=== PATIENT | male | born 1990 | race Caucasian/White ===

== ENCOUNTER 2017-08-20 16:09 | Emergency (ER) | payer SELFPAY ==
[~2017-08-20] VITALS: Ht 188 cm; Wt 73.0 kg
[2017-08-20 16:19] VITALS: BP 156/88
[2017-08-20] MEDS ORDERED: LIDOCAINE 1% HCL (LOCAL ANESTH.) INJ 20ML MDV IN ONE (17:00)
== END 2017-08-20 17:30 | disposition home or self-care (01) ==
LOC: ER 16:13
DX: L02.11 Cutaneous abscess of neck (principal); F17.210 Nicotine dependence, cigarettes, uncomplicated
CPT/HCPCS: 10060; 87077; 87186; 87205

== ENCOUNTER 2017-08-22 09:53 | Emergency (ER) | payer MEDICAID ==
[~2017-08-22] VITALS: Ht 188 cm; Wt 70.3 kg
[2017-08-22 11:39] VITALS: BP 157/79
== END 2017-08-22 12:01 | disposition home or self-care (01) ==
LOC: ER 09:53
DX: L02.11 Cutaneous abscess of neck (principal); F17.210 Nicotine dependence, cigarettes, uncomplicated; Z48.01 Encounter for change or removal of surgical wound dressing

== ENCOUNTER 2017-10-19 19:37 | Inpatient (IN) | payer SELFPAY ==
[~2017-10-19] VITALS: Ht 188 cm; Wt 69.0 kg
[2017-10-19] MEDS ORDERED: cefTRIAXone 1GM/10ml IVPUSH 10 ML IV ONE (21:30)
[2017-10-19] MEDS ORDERED: VANCOMYCIN 1GM/250ML 250 ML IV ONE (21:30)
[2017-10-19] MEDS ORDERED: HYDROcodone-ACET 10/325MG TAB PO ONE (21:30)
[2017-10-19 23:39] LABS: Basophils # (auto) 0.1 uL; Basophils % (auto) 0.9 % (0.0-2.0); Eosinophils # (auto) 0.4 uL; Eosinophils % (auto) 2.8 % (0.0-7.0); Hematocrit 44.4 % (41.0-53.0); Hemoglobin 14.3 g/dL (13.5-17.5); Lymphocytes # (auto) 2.4 uL; Lymphocytes % (auto) 16.9 % (10.0-50.0); Mean Corpuscular Hemoglobin 27.2 pg (28.0-32.0); Mean Corpuscular Hgb Conc. 32.3 g/dL (32.0-36.0); Mean Corpuscular Volume 84.3 fL (80.0-100.0); Monocytes # (auto) 1.3 uL; Monocytes % (auto) 8.8 % (0.0-12.0); Neutrophils # (auto) 10.2 uL; Neutrophils % (auto) 70.6 % (37.0-80.0); Platelet Count (auto) 181 10^3/uL (140-450); Red Blood Cells 5.27 10^6/uL (4.5-5.90); Red Cell Distribution Width 14.4 % (11.8-14.3); White Blood Cell 14.5 10^3/uL (4.4-10.8)
[2017-10-19 23:54] LABS: Albumin 3.6 g/dL (3.4-5.0); BUN/Creatinine Ratio 15.7; Calcium 8.6 mg/dL (8.5-10.1); Potassium 3.7 mmol/L (3.5-5.1)
[2017-10-19 23:57] LABS: Bilirubin, Total 0.6 mg/dL (0.2-1.0); Total Protein 7.2 g/dL (6.4-8.2)
[2017-10-20] MEDS ORDERED: ONDANSETRON HCL 4 MG/2 ML VIAL ONE (00:11)
[2017-10-20] MEDS ORDERED: ONDANSETRON HCL 4 MG/2 ML VIAL IV ONE (00:15)
[2017-10-20] MEDS ORDERED: HYDROcodone-ACET 5/325MG TAB PO PRN (01:45)
[2017-10-20] MEDS ORDERED: MORPHINE SULFATE 4 MG/ML SYR/VIAL IV PRN (01:45)
[2017-10-20] MEDS ORDERED: ACETAMINOPHEN 500 MG TAB PO PRN (01:45)
[2017-10-20] MEDS ORDERED: ONDANSETRON HCL 4 MG/2 ML VIAL IV PRN (01:45)
[2017-10-20 03:24] VITALS: BP 147/83
[2017-10-20 05:00] VITALS: BP 139/71
[2017-10-20] MEDS: CLINDAMYCIN 600MG IV 50 ML IV SCH ×3 (05:34→21:30)
[2017-10-20 07:41] LABS: Basophils # (auto) 0.1 uL; Basophils % (auto) 0.5 % (0.0-2.0); Eosinophils # (auto) 0.3 uL; Eosinophils % (auto) 2.2 % (0.0-7.0); Hematocrit 45.7 % (41.0-53.0); Hemoglobin 14.8 g/dL (13.5-17.5); Lymphocytes # (auto) 1.2 uL; Lymphocytes % (auto) 8.8 % (10.0-50.0); Mean Corpuscular Hemoglobin 27.4 pg (28.0-32.0); Mean Corpuscular Hgb Conc. 32.4 g/dL (32.0-36.0); Mean Corpuscular Volume 84.4 fL (80.0-100.0); Monocytes # (auto) 1.1 uL; Monocytes % (auto) 8.2 % (0.0-12.0); Neutrophils # (auto) 10.7 uL; Neutrophils % (auto) 80.3 % (37.0-80.0); Nucleated Red Blood Cells % 0.1 %; Platelet Count (auto) 170 10^3/uL (140-450); Red Blood Cells 5.41 10^6/uL (4.5-5.90); Red Cell Distribution Width 14.3 % (11.8-14.3); White Blood Cell 13.3 10^3/uL (4.4-10.8)
[2017-10-20 07:57] LABS: BUN/Creatinine Ratio 12.2; Calcium 8.1 mg/dL (8.5-10.1); Potassium 3.4 mmol/L (3.5-5.1)
[2017-10-20 08:20] VITALS: BP 150/89
[2017-10-20] MEDS ORDERED: methylPREDNISolone SOD SUCC 125 MG/2 ML VL IV ONE (08:30)
[2017-10-20] MEDS ORDERED: diphenhdrAMINE HCL 50 MG/1 ML VL IV PRN (08:30)
[2017-10-20] MEDS ORDERED: diphenhdrAMINE HCL 50 MG/1 ML VL IM ONE (08:30)
[2017-10-20] MEDS ORDERED: cefTRIAXone 1GM/10ml IVPUSH 10 ML IV SCH (09:00)
[2017-10-20] MEDS ORDERED: diphenhdrAMINE HCL 50 MG/1 ML VL IV ONE (09:00)
[2017-10-20] MEDS ORDERED: POTASSIUM CHL 20 Meq TABLET PO ONE (09:45)
[2017-10-20] MEDS ORDERED: CHLORHEXIDINE 4% TOPICAL soln 473ML TOP SCH (10:00)
[2017-10-20] MEDS: CHLORHEXIDINE 4% TOPICAL soln 118ML TOP SCH (10:33)
[2017-10-20] MEDS: MUPIROCIN 2% OINT 22GM EACHNOSTRI SCH ×2 (10:33→21:30)
[2017-10-20 12:10] VITALS: BP 133/96
[2017-10-20 17:12] VITALS: BP 140/85
[2017-10-20 22:26] VITALS: BP 128/60
[2017-10-21 05:09] VITALS: BP 121/73
[2017-10-21] MEDS: CLINDAMYCIN 600MG IV 50 ML IV SCH ×3 (05:30→22:26)
[2017-10-21 06:05] LABS: Basophils # (auto) 0.1 uL; Basophils % (auto) 0.4 % (0.0-2.0); Eosinophils # (auto) 0 uL; Hematocrit 46.1 % (41.0-53.0); Hemoglobin 14.9 g/dL (13.5-17.5); Lymphocytes # (auto) 1.1 uL; Lymphocytes % (auto) 4.6 % (10.0-50.0); Mean Corpuscular Hgb Conc. 32.3 g/dL (32.0-36.0); Mean Corpuscular Volume 83.6 fL (80.0-100.0); Monocytes % (auto) 4.3 % (0.0-12.0); Neutrophils # (auto) 22.1 uL; Neutrophils % (auto) 90.7 % (37.0-80.0); Platelet Count (auto) 207 10^3/uL (140-450); Red Blood Cells 5.51 10^6/uL (4.5-5.90); White Blood Cell 24.4 10^3/uL (4.4-10.8)
[2017-10-21 06:15] LABS: BUN/Creatinine Ratio 23.1; Calcium 8.5 mg/dL (8.5-10.1)
[2017-10-21 08:00] VITALS: BP 113/59
[2017-10-21 08:36] VITALS: BP 121/72
[2017-10-21 09:15] LABS: Urine Bacteria FEW /hpf (None Seen); Urine Blood Negative /uL (Negative); Urine Specific Gravity 1.015 (1.001-1.035); Urine WBC 48 /hpf (0 - 3)
[2017-10-21 09:17] LABS: Alcohol, Urine < 3.0 mg/dL (0-5); Amphetamine Screen, Urine NEGATIVE (NEGATIVE); Barbiturate Scree,Urine NEGATIVE (NEGATIVE); Benzodiazephine Screen, Urine NEGATIVE (NEGATIVE); Cannabinoid Screen, Urine NEGATIVE (NEGATIVE); Cocaine Screen, Urine NEGATIVE (NEGATIVE); Opiate Scree,Urine NEGATIVE (NEGATIVE); Phencyclidine Screen, Urine NEGATIVE (NEGATIVE)
[2017-10-21] MEDS: MUPIROCIN 2% OINT 22GM EACHNOSTRI SCH ×2 (10:00→22:00)
[2017-10-21] MEDS: CHLORHEXIDINE 4% TOPICAL soln 118ML TOP SCH (10:00)
[2017-10-21 11:23] VITALS: BP 113/59
[2017-10-21] MEDS: PIPERACILLIN-TAZOB 3.375GM 100 ML IV SCH ×2 (12:44→17:35)
[2017-10-21 17:37] VITALS: BP 119/89
[2017-10-21 22:36] VITALS: BP 115/69
[2017-10-22] MEDS: PIPERACILLIN-TAZOB 3.375GM 100 ML IV SCH ×2 (00:14→05:56)
[2017-10-22 04:54] VITALS: BP 112/67
[2017-10-22] MEDS: CLINDAMYCIN 600MG IV 50 ML IV SCH (05:55)
[2017-10-22 08:00] VITALS: BP 124/74
[2017-10-22 08:30] VITALS: BP 124/74
[2017-10-22 08:40] LABS: Basophils # (auto) 0.1 uL; Basophils % (auto) 0.5 % (0.0-2.0); Eosinophils # (auto) 0.2 uL; Eosinophils % (auto) 1.7 % (0.0-7.0); Hematocrit 46.9 % (41.0-53.0); Hemoglobin 15.4 g/dL (13.5-17.5); Lymphocytes # (auto) 2.1 uL; Lymphocytes % (auto) 17.9 % (10.0-50.0); Mean Corpuscular Hemoglobin 27.4 pg (28.0-32.0); Mean Corpuscular Hgb Conc. 32.8 g/dL (32.0-36.0); Mean Corpuscular Volume 83.6 fL (80.0-100.0); Monocytes # (auto) 0.9 uL; Monocytes % (auto) 7.2 % (0.0-12.0); Neutrophils # (auto) 8.7 uL; Neutrophils % (auto) 72.7 % (37.0-80.0); Nucleated Red Blood Cells % 0.1 %; Platelet Count (auto) 205 10^3/uL (140-450); Red Cell Distribution Width 14.3 % (11.8-14.3); White Blood Cell 11.9 10^3/uL (4.4-10.8)
[2017-10-22 08:55] LABS: BUN/Creatinine Ratio 14.6; Calcium 8.5 mg/dL (8.5-10.1); Potassium 4.5 mmol/L (3.5-5.1)
[2017-10-22] MEDS: CHLORHEXIDINE 4% TOPICAL soln 118ML TOP SCH (10:33)
[2017-10-22] MEDS: MUPIROCIN 2% OINT 22GM EACHNOSTRI SCH (10:33)
[2017-10-22] MEDS ORDERED: SULFAMETHOX W/TRIMETH(800/160MG) DS TAB PO SCH (14:00)
== END 2017-10-22 13:22 | disposition left against medical advice (07) | DRG 603 ==
LOC: ER 19:37 → EDBD 19:37 → OVERFLOW 19:38 → EAST 10-20 02:05
PROVIDERS: ADMIT Nurse Practitioner Family; ATTEND Internal Medicine
DX: L03.211 Cellulitis of face (principal); D72.829 Elevated white blood cell count, unspecified; F17.210 Nicotine dependence, cigarettes, uncomplicated; R23.4 Changes in skin texture; F19.10 Other psychoactive substance abuse, uncomplicated; Z22.322 Carrier or suspected carrier of Methicillin resistant Staphylococcus aureus
CPT/HCPCS: 36415; 70486; 80048; 80053; 80307; 81001; 85025; 87040; 87077; 87081; 87086; 87186; 87205; 96365; 96375; J2405; J2543; J3490

== ENCOUNTER 2019-03-18 03:36 | Emergency (ER) | payer SELFPAY ==
[~2019-03-18] VITALS: Ht 188 cm; Wt 72.6 kg
[2019-03-18 04:36] LABS: Albumin 3.8 g/dL (3.4-5.0); Calcium 9.4 mg/dL (8.5-10.1); Potassium 3.8 mmol/L (3.5-5.1)
[2019-03-18 04:39] LABS: Bilirubin, Total 0.5 mg/dL (0.2-1.0); Total Protein 8.3 g/dL (6.4-8.2)
[2019-03-18 04:43] LABS: Basophils # (auto) 0.1 uL; Basophils % (auto) 0.5 % (0.0-2.0); Eosinophils # (auto) 0.1 uL; Hematocrit 49.9 % (41.0-53.0); Hemoglobin 16.8 g/dL (13.5-17.5); Lymphocytes # (auto) 2.1 uL; Lymphocytes % (auto) 17.2 % (10.0-50.0); Mean Corpuscular Hemoglobin 28.4 pg (28.0-32.0); Mean Corpuscular Hgb Conc. 33.7 g/dL (32.0-36.0); Mean Corpuscular Volume 84.2 fL (80.0-100.0); Monocytes # (auto) 1.1 uL; Monocytes % (auto) 9.1 % (0.0-12.0); Neutrophils # (auto) 8.7 uL; Neutrophils % (auto) 72.2 % (37.0-80.0); Nucleated Red Blood Cells % 0.1 %; Platelet Count (auto) 210 10^3/uL (140-450); Red Blood Cells 5.93 10^6/uL (4.5-5.90); Red Cell Distribution Width 12.7 % (11.8-14.3)
[2019-03-18] MEDS ORDERED: CLINDAMYCIN 900MG IV 50 ML IV ONE (04:45)
[2019-03-18] MEDS ORDERED: TETANUS-DIPTH-ACEL PERTUSSIS 0.5ML SYRG IM ONE (04:45)
[2019-03-18] MEDS ORDERED: BUPIVACAINE 0.25% INJ 50ML VIAL ID ONE (04:45)
[2019-03-18] MEDS ORDERED: LIDOCAINE 1% (LOCAL ANESTH.) PF 5ml SDV ID ONE (04:45)
[2019-03-18] MEDS ORDERED: LIDOCAINE 2% (LOCAL ANESTH.) PF 5ml SDV ONE (05:18)
[2019-03-18] MEDS ORDERED: LORazepam 2MG/ML-1ML VIAL IV ONE (05:30)
[2019-03-18] MEDS ORDERED: MORPHINE SULFATE 4 MG/ML SYR/VIAL IV ONE (06:00)
[2019-03-18] MEDS ORDERED: ONDANSETRON HCL 4 MG/2 ML VIAL IV ONE (06:00)
[2019-03-18 06:10] VITALS: BP 136/78
== END 2019-03-18 06:15 | disposition home or self-care (01) ==
LOC: ER 03:40
DX: L03.011 Cellulitis of right finger (principal)
CPT/HCPCS: 26011; 36415; 80053; 83605; 85025; 87040; 90471; 90715; 96365; 96366; 96375; 99284; J2001; J2060; J2270; J2405; J3490; J7030; 10060

== ENCOUNTER 2019-05-11 14:42 | Emergency (ER) | payer MEDICAID ==
[~2019-05-11] VITALS: Ht 188 cm; Wt 72.6 kg
[2019-05-11 15:26] VITALS: BP 138/96
[2019-05-11] MEDS ORDERED: cefTRIAXone SOD 1,000 MG VL IM ONE (16:00)
== END 2019-05-11 16:22 | disposition home or self-care (01) ==
LOC: ER 14:50
DX: S60.861A Insect bite (nonvenomous) of right wrist, initial encounter (principal); F17.210 Nicotine dependence, cigarettes, uncomplicated; F15.10 Other stimulant abuse, uncomplicated; W57.XXXA Bitten or stung by nonvenomous insect and other nonvenomous arthropods, initial encounter; Y93.89 Activity, other specified; Y92.89 Other specified places as the place of occurrence of the external cause; Y99.8 Other external cause status
CPT/HCPCS: 96372; 99283; J0696

== ENCOUNTER 2023-04-08 06:25 | Emergency (ER) | payer MEDICAID ==
[~2023-04-08] VITALS: Ht 188 cm; Wt 72.7 kg
[2023-04-08 07:28] LABS: Basophils # (auto) 0.1 10 ^3/uL (0-0.2); Eosinophils # (auto) 0.2 10 ^3/uL (0-0.8); Eosinophils % (auto) 2.2 % (0.0-7.0); Hemoglobin 12.1 g/dL (13.5-17.5); Mean Corpuscular Volume 80.4 fL (80.0-100.0); Red Cell Distribution Width 15.2 % (11.8-14.3)
[2023-04-08 07:33] LABS: Basophils % (auto) 1.1 % (0.0-2.0); Hematocrit 37.5 % (41.0-53.0); Lymphocytes # (auto) 1.4 10 ^3/uL (0.4-5.4); Mean Corpuscular Hgb Conc. 32.3 g/dL (32.0-36.0); Monocytes # (auto) 0.6 10 ^3/uL (0-1.3); Monocytes % (auto) 6.8 % (0.0-12.0); Neutrophils # (auto) 6.9 10 ^3/uL (1.6-8.6); Neutrophils % (auto) 74.9 % (37.0-80.0); Red Blood Cells 4.66 10^6/uL (4.5-5.90); White Blood Cell 9.2 10^3/uL (4.4-10.8)
[2023-04-08 08:04] LABS: Alanine Aminotransferase 45 U/L (7-40); Albumin 2.4 g/dL (3.2-4.8); Alkaline Phosphatase 88 U/L (46-116); Anion Gap 0.4 (5-15); Aspartate Aminotransferase 65 U/L (13-40); BUN/Creatinine Ratio 9.5 (10.0-20.0); Bilirubin, Total 0.3 mg/dL (0.2-1.0); Blood Urea Nitrogen 7 mg/dL (9-23); Calcium 7.8 mg/dL (8.7-10.4); Carbon Dioxide 28.6 mmol/L (20-30); Chloride 106 mmol/L (98-107); Glucose 98 mg/dL (74-106); Lipase 48 U/L (12-53); Potassium 3.9 mmol/L (3.5-5.1); Sodium 135 mmol/L (136-145); Total Protein 6.3 g/dL (5.7-8.2)
[2023-04-08 09:02] LABS: Urine Bacteria FEW /hpf (None Seen); Urine Blood 3+ /uL (Negative); Urine Clarity Clear (Clear); Urine Color Yellow (Yellow); Urine Hyaline Cast MANY /lpf (0 - 2); Urine Mucus FEW (None Seen); Urine Protein, UAD 3+ (Negative); Urine Specific Gravity 1.024 (1.001-1.035); Urine Urobilinogen Normal (Negative); Urine WBC 9 /hpf (0 - 3)
[2023-04-08 12:11] LABS: Amphetamine Screen, Urine Neg (NEGATIVE)
[2023-04-08 12:12] LABS: Benzodiazephine Screen, Urine Neg (NEGATIVE)
[2023-04-08 12:13] LABS: Barbiturate Scree,Urine Neg (NEGATIVE); Cannabinoid Screen, Urine Neg (NEGATIVE); Cocaine Screen, Urine Neg (NEGATIVE); Opiate Scree,Urine Neg (NEGATIVE); Phencyclidine Screen, Urine Neg (NEGATIVE)
[2023-04-08] MEDS ORDERED: NAPR-1334 PO (14:48)
[2023-04-08] MEDS ORDERED: ZOFR4T PO ×3 (14:50→14:51)
[2023-04-08 14:58] VITALS: BP 129/92; PULSE 120; RESP 18; TEMP 98.1; O2SAT 98
== END 2023-04-08 15:00 | disposition home or self-care (01) ==
LOC: ER 06:25 → EDBD 06:25 → ER 15:00
DX: R10.33 Periumbilical pain (principal); R61 Generalized hyperhidrosis; F17.210 Nicotine dependence, cigarettes, uncomplicated; F15.90 Other stimulant use, unspecified, uncomplicated; Z79.899 Other long term (current) drug therapy
CPT/HCPCS: 36415; 74176; 80053; 80307; 81001; 83690; 84484; 85025

== ENCOUNTER 2023-04-18 11:48 | Inpatient (IN) | payer MEDICAID ==
[~2023-04-18] VITALS: Ht 188 cm; Wt 77.0 kg
[~2023-04-18 11:48] MED LIST: NAPR-1334 PO; ZOFR4T PO
[2023-04-18 12:00] VITALS: PULSE 100; RESP 16; O2SAT 99
[2023-04-18 12:39] LABS: Urine Bacteria FEW /hpf (None Seen); Urine Blood 3+ /uL (Negative); Urine Clarity Clear (Clear); Urine Color Yellow (Yellow); Urine Hyaline Cast MOD /lpf (0 - 2); Urine Mucus FEW (None Seen); Urine Protein, UAD 3+ (Negative); Urine Specific Gravity 1.019 (1.001-1.035); Urine Urobilinogen Normal (Negative); Urine WBC 13 /hpf (0 - 3); Urine pH 6.5 (5.0-8.0)
[2023-04-18 12:46] LABS: Basophils # (auto) 0.1 10 ^3/uL (0-0.2); Eosinophils # (auto) 0.3 10 ^3/uL (0-0.8); Hemoglobin 10.5 g/dL (13.5-17.5); Lymphocytes # (auto) 1.1 10 ^3/uL (0.4-5.4); Neutrophils % (auto) 76.1 % (37.0-80.0); Nucleated Red Blood Cells % 0.1 %
[2023-04-18 12:48] LABS: Basophils % (auto) 1.4 % (0.0-2.0); Eosinophils % (auto) 3.2 % (0.0-7.0); Hematocrit 31.4 % (41.0-53.0); Lymphocytes % (auto) 11.1 % (10.0-50.0); Mean Corpuscular Hemoglobin 26.6 pg (28.0-32.0); Mean Corpuscular Hgb Conc. 33.3 g/dL (32.0-36.0); Mean Corpuscular Volume 79.9 fL (80.0-100.0); Monocytes # (auto) 0.8 10 ^3/uL (0-1.3); Monocytes % (auto) 8.2 % (0.0-12.0); Neutrophils # (auto) 7.6 10 ^3/uL (1.6-8.6); Red Blood Cells 3.93 10^6/uL (4.5-5.90)
[2023-04-18] MEDS ORDERED: ENOXAPARIN SOD 80 MG/0.8ML SYRINGE SC ONE (13:00)
[2023-04-18] MEDS ORDERED: cefTRIAXone 1GM/50ML D5W 50 ML IV ONE (13:00)
[2023-04-18] MEDS ORDERED: CLINDAMYCIN HCL 150 MG CAP PO ONE (13:00)
[2023-04-18] MEDS ORDERED: SODIUM CHLORIDE 0.9% 1,000 ML IV ONE ×2 (13:00)
[2023-04-18] MEDS ORDERED: HYDROcodone-ACET 10/325MG TAB PO ONE (13:00)
[2023-04-18] MEDS ORDERED: IOHEXOL 350 MG/ML 100ML IJ ONE (13:01)
[2023-04-18 13:21] LABS: Alanine Aminotransferase 35 U/L (7-40); Albumin 1.9 g/dL (3.2-4.8); Alkaline Phosphatase 69 U/L (46-116); Anion Gap 3 (5-15); Aspartate Aminotransferase 56 U/L (13-40); BUN/Creatinine Ratio 10.1 (10.0-20.0); Bilirubin, Total 0.3 mg/dL (0.2-1.0); Blood Urea Nitrogen 8 mg/dL (9-23); Calcium 6.9 mg/dL (8.7-10.4); Carbon Dioxide 26 mmol/L (20-30); Chloride 108 mmol/L (98-107); Glucose 85 mg/dL (74-106); Potassium 3.6 mmol/L (3.5-5.1); Sodium 137 mmol/L (136-145); Total Protein 5.4 g/dL (5.7-8.2)
[2023-04-18 13:55] LABS: INR 1.05 (0.9-1.15); Partial Thromboplastin Time 31.8 SEC (24.5-34.5)
[2023-04-18] MEDS ORDERED: ONDANSETRON HCL 4 MG/2 ML VIAL IV PRN (14:30)
[2023-04-18] MEDS ORDERED: DOCUSATE SOD 100 MG CAP PO PRN (14:30)
[2023-04-18] MEDS ORDERED: ACETAMINOPHEN 325 MG TAB PO PRN (14:30)
[2023-04-18 19:20] VITALS: PULSE 87; RESP 24; O2SAT 97
[2023-04-18] MEDS: CLINDAMYCIN 600MG IV 50 ML IV SCH (22:28)
[2023-04-18] MEDS: SODIUM CHLOR 0.9% PF (SALINE LOCK) 10ML VIAL/SYR IV SCH (22:28)
[2023-04-18] MEDS: HYDROcodone-ACET 5/325MG TAB PO PRN (22:29)
[2023-04-19] VITALS (7 sets, daily range): BP systolic 128–136; BP diastolic 72–87; PULSE 72–97; RESP 14–20; TEMP 97.5–98.7; O2SAT 93–100
[2023-04-19] MEDS ORDERED: RIVA20TA PO (00:13)
[2023-04-19] MEDS: HYDROcodone-ACET 5/325MG TAB PO PRN ×3 (04:22→14:22)
[2023-04-19 05:18] LABS: Basophils # (auto) 0 10 ^3/uL (0-0.2); Basophils % (auto) 0.5 % (0.0-2.0); Eosinophils # (auto) 0.4 10 ^3/uL (0-0.8); Lymphocytes # (auto) 1.2 10 ^3/uL (0.4-5.4); Monocytes # (auto) 0.2 10 ^3/uL (0-1.3); Nucleated Red Blood Cells % 0.1 %; White Blood Cell 9.4 10^3/uL (4.4-10.8)
[2023-04-19 05:20] LABS: Hematocrit 32.4 % (41.0-53.0); Hemoglobin 10.9 g/dL (13.5-17.5); Lymphocytes % (auto) 13.1 % (10.0-50.0); Mean Corpuscular Hemoglobin 26.7 pg (28.0-32.0); Mean Corpuscular Hgb Conc. 33.5 g/dL (32.0-36.0); Mean Corpuscular Volume 79.9 fL (80.0-100.0); Monocytes % (auto) 2.3 % (0.0-12.0); Neutrophils # (auto) 7.5 10 ^3/uL (1.6-8.6); Neutrophils % (auto) 80.1 % (37.0-80.0); Red Blood Cells 4.06 10^6/uL (4.5-5.90); Red Cell Distribution Width 14.9 % (11.8-14.3)
[2023-04-19 05:40] LABS: Alanine Aminotransferase 30 U/L (7-40); Alkaline Phosphatase 75 U/L (46-116); Anion Gap 0 (5-15); Aspartate Aminotransferase 49 U/L (13-40); BUN/Creatinine Ratio 8.4 (10.0-20.0); Blood Urea Nitrogen 9 mg/dL (9-23); Calcium 7.4 mg/dL (8.7-10.4); Carbon Dioxide 29 mmol/L (20-30); Chloride 106 mmol/L (98-107); Glucose 79 mg/dL (74-106); Potassium 3.8 mmol/L (3.5-5.1); Sodium 135 mmol/L (136-145)
[2023-04-19 05:41] LABS: Bilirubin, Total 0.2 mg/dL (0.2-1.0); Total Protein 5.6 g/dL (5.7-8.2)
[2023-04-19] MEDS: CLINDAMYCIN 600MG IV 50 ML IV SCH ×3 (06:01→22:29)
[2023-04-19] MEDS: SODIUM CHLOR 0.9% PF (SALINE LOCK) 10ML VIAL/SYR IV SCH ×3 (06:02→22:30)
[2023-04-20 05:00] VITALS: BP 141/89; PULSE 80; RESP 18; TEMP 97.8; O2SAT 94
[2023-04-20] MEDS: SODIUM CHLOR 0.9% PF (SALINE LOCK) 10ML VIAL/SYR IV SCH ×2 (06:13→14:00)
[2023-04-20] MEDS: CLINDAMYCIN 600MG IV 50 ML IV SCH ×2 (06:14→14:00)
[2023-04-20 09:00] VITALS: BP 144/83; PULSE 68; RESP 14; TEMP 98.6; O2SAT 95
[2023-04-20] MEDS ORDERED: CLIN300C70 PO (11:09)
[2023-04-20 13:00] VITALS: BP 133/73; PULSE 86; RESP 14; TEMP 97.5; O2SAT 96
== END 2023-04-20 16:54 | disposition home or self-care (01) | DRG 501 ==
LOC: ER 11:48 → EDBD 11:48 → OVERFLOW 14:31 → WEST WING 22:52
PROVIDERS: ADMIT Nurse Practitioner Family; ATTEND Internal Medicine Pulmonary Disease
DX: N49.8 Inflammatory disorders of other specified male genital organs (principal); E46 Unspecified protein-calorie malnutrition; F15.90 Other stimulant use, unspecified, uncomplicated; F17.210 Nicotine dependence, cigarettes, uncomplicated; Z68.21 Body mass index [BMI] 21.0-21.9, adult; Z59.00 Homelessness unspecified; Z79.899 Other long term (current) drug therapy; Z86.718 Personal history of other venous thrombosis and embolism; Z79.01 Long term (current) use of anticoagulants
CPT/HCPCS: 36415; 71275; 76870; 80053; 81001; 83605; 83880; 84484; 85025; 85610; 85730; 87040; 87077; 87081; 87186; 87205; 93970; 96365; 96372; G0378; J0696; J3490